=== PATIENT | female | born 1975 | race African-American/Black ===

== ENCOUNTER 2021-06-07 08:42 | Emergency (ER) | payer OTHER, SELFPAY ==
--- NOTE | ~2021-06-07 | US_ITS ---
EXAMINATION: US venous doppler LE RT DATE: 06/07/2021 09:27 INDICATION: Lower limb pain TECHNIQUE: Grayscale ultrasound images without and with compression and Doppler ultrasound images of the right lower extremity veins were obtained. COMPARISON: None. FINDINGS: The visualized portions of right common femoral vein, profunda (deep) femoral vein, femoral vein, pop liteal vein, posterior tibial veins, peroneal veins, gastrocnemius vein and greater saphenous vein ou tflow are patent. IMPRESSION: 1. No deep venous thrombosis in the right lower limb. Reviewed, dictated and finalized at location A.
[2021-06-07 08:50] VITALS: BP 126/83; PULSE 88; RESP 16; TEMP 36.6; O2SAT 98
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
[2021-06-07] MEDS: HYDROcodone/acetaminophen (*CRX) 5-325 MG TABLET 1 TAB PO (09:22)
[2021-06-07 11:00] VITALS: BP 124/75; PULSE 100; RESP 16; O2SAT 98
== END 2021-06-07 11:00 | disposition home or self-care (01) ==
LOC: ANHED 09:57
PROVIDERS: Emergency Provider Emergency Medicine
DX: S86.911A Strain of unspecified muscle(s) and tendon(s) at lower leg level, right leg, initial encounter (principal); X58.XXXA Exposure to other specified factors, initial encounter
CPT/HCPCS: 93971; 99283; 99284; A9270

== ENCOUNTER 2022-10-22 10:44 | Emergency (ER) | payer OTHER, SELFPAY ==
--- NOTE | ~2022-10-22 | XR_ITS ---
Clinical Indication: Chest pain PA and lateral views of the chest: Comparison: None Findings: The lungs are clear, without evidence of focal consolidation or pleural effusion. Cardiome diastinal silhouette is within normal limits. Bones and soft tissues are unremarkable. Impression: Normal chest. Reviewed, dictated and finalized at location . [employer] P[employer]ER Impression: Normal chest.
--- NOTE | 2022-10-22 10:44 | ECG_ITS ---
Measurements Intervals [place] Rate: 85 P: 47 FL: 141 QRS: 31 QRSD: 81 T: 27 QT: 338 QTc: 402 Interpretive Statements SINUS RHYTHM NONSPECIFIC T-WAVE ABNORMALITY NO PREVIOUS ECG AVAILABLE FOR COMPARISON Electronically Signed On 10-22-2022 17:58:33 POSITION CLASSIFICATION MANAGER by Selma De aL O M.D.
[2022-10-22 11:01] VITALS: BP 125/87; PULSE 76; RESP 16; TEMP 37.1; O2SAT 100
[2022-10-22 11:07] LABS: Basophils Absolute Auto 0.1 K/mm3 (0.0-0.1); Eosinophils Absolute Auto 0.2 K/mm3 (0-0.3); Eosinophils Percent Auto 2.8 % (0-4.4); Hematocrit 39.9 % (37.0-47.0); Hemoglobin 14.2 g/dL (12.0-15.0); Immature Granulocyte Absolute 0.03 K/mm3 (0.00-0.031); Immature Granulocyte Percent A 0.4 % (0-0.5); Lymphocytes Absolute Auto 1.72 K/mm3 (0.9-3.2); Lymphocytes Percent Auto 25.3 % (18.3-44.2); Mean Corpuscular HGB Conc 35.6 g/dl (32-36); Mean Corpuscular Hemoglobin 31.8 pg (26-34); Mean Corpuscular Volume 89.5 fl (80-100); Mean Platelet Volume 11.1 fl (7.4-10.4); Monocytes Absolute Auto 0.8 K/mm3 (0.1-0.6); Monocytes Percent Auto 11.3 % (2.6-8.5); Neutrophils Percent Auto 59.2 % (45.5-73.1); Platelet Count Result 241 k/mm3 (150-375); Red Blood Count 4.46 M/mm3 (4.2-5.4); Red Cell Distribution Width 11.9 % (11.5-14.5); White Blood Count 6.8 K/mm3 (4.5-10.0)
[2022-10-22 11:17] LABS: Alanine Aminotransferase 21 U/L (6-35); Albumin Level 4.1 g/dL (3.5-5.1); Alkaline Phosphatase 77 U/L (38-126); Anion Gap 5 mmol/L (8-16); Aspartate Amino Transferase 29 U/L (14-36); Bilirubin,Total 0.5 mg/dL (0.2-1.3); Blood Urea Nitrogen 12 mg/dL (7-17); Calcium 8.7 mg/dL (8.4-10.2); Carbon Dioxide 26 mmol/L (22-30); Chloride 106 mmol/L (98-107); Estimated CRCL calculation 101 ml/min; Estimated Glomerular Filt Rate > 60; Glucose 91 mg/dL (65-110); INR 1.1; Lipase 105 U/L (23-300); Potassium 3.7 mmol/L (3.4-5.0); Prothrombin Time 13.9 Seconds (11.1-14.7); Sodium 137 mmol/L (137-145)
[2022-10-22 11:18] LABS: Partial Thromboplastin Time 26.8 SECONDS (22.3-36.8)
[2022-10-22 11:29] LABS: Troponin I < 0.012 ng/mL (0.000-0.034)
[2022-10-22 14:28] LABS: Troponin I < 0.012 ng/mL (0.000-0.034)
[2022-10-22 17:32] LABS: Troponin I < 0.012 ng/mL (0.000-0.034)
--- NOTE | 2022-10-22 20:01 | ED.CHESTPAIN ---
HPI - Chest Pain General Chief Complaint: Chest Pain Stated Complaint: excruciating chest pain Time Seen by Provider: 10/22/22 19:29 History of Present Illness HPI narrative: 47-year-old female no medical problems presents to the emergency room for evaluation of chest pain. Patient states she has been experiencing constant substernal chest tightness since yesterday. States pain was unprovoked. States pain is worse with inspiration, talking, moving around and lifting heavy objects. Patient states that she has been experiencing the symptoms intermittently for many years and does not had them evaluated. Patient denies shortness of breath difficulty breathing. Denies presyncope or syncopal events. Denies nausea vomiting. Patient reports not taking any medications to alleviate her symptoms. Related Data Allergies Allergy/AdvReac Type Severity Reaction Status Date / Time lactose Allergy Unknown Verified 06/07/21 09:05 Review of Systems Review of Systems: CONSTITUTIONAL: Denies fever, chills, or sweats. EYES: Denies visual changes, redness, or discharge. ENT: Denies rhinorrhea, congestion, sore throat, or otalgia. CARDIOVASCULAR: Reports chest pain, occasional palpitations RESPIRATORY: Denies cough or dyspnea. GASTROINTESTINAL: Denies abdominal pain, nausea, vomiting, or diarrhea. GENITOURINARY: Denies dysuria or hematuria. SKIN: Denies rash or itching. MUSCULOSKELETAL: Denies back pain, joint pain, or myalgia. NEUROLOGIC: Denies headache, numbness, dizziness, or weakness. PSYCHIATRIC: Denies anxiety or depression. PMFSH Past Medical History Medical History Patient denies significant medical history Social History Social History Smoking status: Never smoker Exam Narrative: GENERAL: Well-appearing, well-nourished, no physical limitations, and in no acute distress. HEAD: Normocephalic, atraumatic. EYES: Conjunctivae normal, PERRLA and EOMI. NECK: Supple. No adenopathy or masses. CHEST: Clear to auscultation. No respiratory distress. No wheezes rales or rhonchi. Midsternal tenderness HEART: Regular rate and rhythm. No murmur heard. Normal peripheral pulses. ABDOMEN: Soft, nontender, nondistended, normal active bowel sounds. EXTREMITIES: Normal range of motion. No edema. No clubbing or cyanosis SKIN: Warm, dry, no rash. No noted wounds NEURO: No focal deficits. Alert and oriented x3. MAEW. CN's II-XI intact bilaterally, normal gait PSYCH: Cooperative. Normal mood and affect. Course Vital Signs Vital signs: Vital Signs Temperature 37.1 C 10/22/22 11:01 Pulse Rate 76 10/22/22 11:01 Respiratory Rate 16 10/22/22 11:01 Blood Pressure 125/87 10/22/22 11:01 Pulse Oximetry 100 10/22/22 11:01 Oxygen Delivery Room Air 10/22/22 11:01 Temperature 37.1 C 10/22/22 11:01 Pulse Rate 76 10/22/22 11:01 Respiratory Rate 16 10/22/22 11:01 Blood Pressure 125/87 10/22/22 11:01 Pulse Oximetry 100 10/22/22 11:01 Oxygen Delivery Room Air 10/22/22 19:51 MDM - Chest Pain MDM Narrative Medical decision making narrative: 47-year-old female presented the emergency room for evaluation of chest pain that she has had since last night. States pain is similar to previous episodes that she has been experiencing for many years. Denies radiating pain. Exam showed no evidence of volume overload. EKG showed no signs of active ischemia. Single troponin was negative delta troponin was negative. Presentation is not consistent with a PE as she had a negative PERC score. Chest x-ray showed no evidence of acute cardiopulmonary disease. Heart score was a 2, so we will plan to discharge patient home with follow-up to cardiology. Symptoms could also be due to GERD. Lab Data 10/22/22 11:00 10/22/22 10:59 Labs: Lab Results 10/22/22 10/22/22 10/22/22 Range/Units 10
[2022-10-22 20:07] LABS: D Dimer 0.37 ug/mL (<0.48)
[2022-10-22] MEDS: KETOROLAC 30 MG/ML VIAL (*BKC) IV PUSH (20:09)
== END 2022-10-22 21:09 | disposition home or self-care (01) ==
PROVIDERS: Emergency Medicine; Emergency Provider Nurse Practitioner Family
DX: R07.89 Other chest pain (principal); R94.31 Abnormal electrocardiogram [ECG] [EKG]
CPT/HCPCS: 36415; 71046; 80053; 83690; 84443; 84484; 85025; 85380; 85610; 85730; 93005; 96374; 99284; J1885

== ENCOUNTER 2022-12-25 09:19 | Emergency (ER) | payer OTHER, SELFPAY ==
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
[2022-12-25 09:43] VITALS: BP 117/81; PULSE 78; RESP 14; TEMP 36.9; O2SAT 100
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
== END 2022-12-25 11:10 | disposition home or self-care (01) ==
PROVIDERS: Emergency Provider Nurse Practitioner
DX: S16.1XXA Strain of muscle, fascia and tendon at neck level, initial encounter (principal); S39.012A Strain of muscle, fascia and tendon of lower back, initial encounter; V49.40XA Driver injured in collision with unspecified motor vehicles in traffic accident, initial encounter; M54.2 Cervicalgia
CPT/HCPCS: 72040; 72100; 99213; G0463

== ENCOUNTER 2023-05-04 13:20 | Emergency (ER) | payer OTHER, SELFPAY ==
--- NOTE | ~2023-05-04 | XR_ITS ---
EXAMINATION: XR knee RT 3V DATE: 05/04/2023 13:42 INDICATION: 3 the CSF medial right knee pain TECHNIQUE: Anteroposterior, sunrise and crosstable lateral views of the right knee were obtained COMPARISON: None. FINDINGS: Alignment is normal. No fracture. Joint spaces appear normal on nonweightbearing imaging. No joint ef fusion/layering lipohemarthrosis. Soft tissues are unremarkable. IMPRESSION: 1. Negative right knee radiographs. Reviewed, dictated and finalized at location B.
--- NOTE | 2023-05-04 13:25 | ED.LOWEXIN ---
HPI - Extremity Injury (Lower) General Chief Complaint: Extremity Injury, Lower Stated Complaint: R KNEE INJURY Time Seen by Provider: 05/04/23 13:35 Source: patient and RN notes reviewed Mode of arrival: ambulatory Limitations: no limitations History of Present Illness HPI Narrative: 47-year-old female presents with concern for right knee pain. She reports about 3 weeks ago she fell causing her knee to rotate externally. She reports she has been seeing physical therapy since then for back pain in they have also been addressing her knee pain. Reports she has been using compression most of the time while she is weight-bearing. She reports she tried ibuprofen without relief. She reports pain is worse in the morning. Reports pain worsens with weight-bearing. She denies redness, warmth, swelling. MD complaint: knee injury Related Data Allergies Allergy/AdvReac Type Severity Reaction Status Date / Time lactose Allergy Unknown Verified 05/04/23 13:50 Latex, Natural Rubber Allergy Rash Verified 05/04/23 13:50 Review of Systems Review of Systems: CONSTITUTIONAL: Denies malaise, chills, sweats, or fever. SKIN: Denies rash or itching, open skin, laceration, abrasion, redness, warmth, swelling. MUSCULOSKELETAL: Reports right knee pain NEUROLOGIC: Denies numbness, weakness All systems reviewed & are unremarkable except as noted in HPI and below PMFSH Past Medical History Medical History Patient denies significant medical history Social History Social History Smoking status: Never smoker Comments At time of signature, agree with nursing past medical, surgical, social and family history. There is no relevant family history pertinent to the presenting complaint Exam Narrative: GENERAL: Well-appearing, well-nourished, and in no acute distress. HEAD: Normocephalic, atraumatic. EYES: PERRLA, conjunctivae clear NECK: Supple. CHEST: Speaks in full sentences. No respiratory distress. HEART: Regular rate and rhythm. Normal and equal peripheral pulses. EXTREMITIES: Right knee has normal strength and sensation, normal range of motion. No edema or ecchymosis. Normal sensation with sensitivity to light touch and pain. Anterior medial tenderness tenderness. No open wounds, no skin tenting, no devitalized tissue or atrophy, no trophic changes, no obvious deformity, alignment normal, nearby joints and structures intact. Distal pulses palpable and equal bilaterally, skin warm, dry, pink. Capillary refill less than 3 seconds. Lever test negative SKIN: Warm, dry, no rash. NEURO: Alert and oriented x3. PSYCH: Normal mood and affect Course Course Emergency Course: Patient is aware of diagnosis, understands and agrees to treatment plan. Anticipatory guidance given. Patient agrees to follow-up as directed and is aware of reasons to seek care at the emergency department. Portions of this record may have been created with voice recognition software Level of Care: Express Care Visit Vital Signs Vital signs: Reviewed. MDM - Extremity Injury (Lower) MDM Narrative Medical decision making narrative: Patients injury and pain is consistent with musculoskeletal etiology. No signs of neurological or vascular compromise on exam. Compartments and tissues are soft without signs of compartment syndrome. Pain is felt appropriate for further evaluation on an outpatient basis. Imaging Data My impression: Images reviewed, interpreted by radiologist, agree, see report. Radiologist's impression: EXAMINATION: XR knee RT 3V DATE: 05/04/2023 13:42 INDICATION: 3 the CSF medial right knee pain TECHNIQUE: Anteroposterior, sunrise and crosstable lateral views of the right knee were obtained COMPARISON: None. FINDINGS: Alignment is normal. No fracture. Joint spaces appear normal on nonweightbearing imaging. No joint effusion/laye
[2023-05-04 13:28] VITALS: BP 109/72; PULSE 85; RESP 16; TEMP 36.8; O2SAT 98
== END 2023-05-04 14:00 | disposition home or self-care (01) ==
PROVIDERS: Emergency Provider Nurse Practitioner
DX: S83.91XA Sprain of unspecified site of right knee, initial encounter (principal); W19.XXXA Unspecified fall, initial encounter
CPT/HCPCS: 73562; 99213; G0463